=== PATIENT | male | born 1955 | race African-American/Black ===

== ENCOUNTER 2024-06-07 13:51 | Emergency (ER) | payer OTHER ==
[2024-06-07] MEDS ORDERED: Ketorolac Tromethamine 30 MG (1 mL) VIAL ONE (14:20)
[2024-06-07] MEDS ORDERED: Cyclobenzaprine 10 MG TAB ONE (14:20)
[2024-06-07] MEDS ORDERED: Acetaminophen 500 MG TAB ONE (14:20)
[2024-06-07] MEDS ORDERED: Gabapentin 100 MG CAP PO SCH (14:45)
[2024-06-07] MEDS ORDERED: Bicillin LA 1.2 MILLION UNITS/2 ML SYRINGE IM SCH (14:45)
[2024-06-07 14:48] LABS: Bilirubin Neg (Negative); Blood, Urine Negative (Negative); Clarity Clear (Clear); Glucose, Urine (Dipstick) Normal (Negative); Ketone, Urine Negative (Negative); Leukocyte Negative (Negative); Nitrite Negative (Negative); Protein, Urine (Dipstick) 100 mg/dl (Neg-Trace); Specific Gravity, Urine 1.025 (1.005-1.030)
[2024-06-07 15:11] LABS: Bacteria/HPF Rare-Few HPF (None Seen); CAUTI Indications for Culture Pelvic or flank pain; Mucous/LPF Rare LPF (<2+); RBC/HPF 0-3 HPF (0-3); Squamous Epithelial 0-3 HPF (0-3)
[2024-06-07 15:12] LABS: Urine Culture Reflex No No
== END 2024-06-07 15:28 ==
LOC: EEVIPCON 13:51 → CSHERS 13:51
DX: M54.32 Sciatica, left side (principal); N50.812 Left testicular pain; K40.90 Unilateral inguinal hernia, without obstruction or gangrene, not specified as recurrent; E11.9 Type 2 diabetes mellitus without complications; I10 Essential (primary) hypertension
CPT/HCPCS: 76870; 81001; 93976; 96372; J0561; J1885